=== PATIENT | female | born 1970 | race Asian ===

== ENCOUNTER 2020-08-10 14:44 | Emergency (ER) | payer BC ==
[~2020-08-10] VITALS: Ht 154.9 cm; Wt 56.0 kg
[2020-08-10 17:07] LABS: BASOPHILS % 0.2 % (0.0-2.0); EOSINOPHILS % 0.3 % (0.0-5.0); HEMATOCRIT. 34.2 % (36.0-48.0); HEMOGLOBIN. 11.2 g/dL (12.0-16.0); LYMPHOCYTES % 15.1 % (20.0-50.0); MEAN CORPUSCULAR HEMOGLOBIN 27.6 pg (28.0-32.0); MEAN CORPUSCULAR VOLUME 84.2 fL (81.0-99.0); MEAN PLATELET VOLUME 8.5 fl (7.4-10.4); MONOCYTES % 4.9 % (2.0-8.0); NEUTROPHILS % 79.5 % (40.0-76.0); PLATELET 352 x1000/uL (130-400); RED BLOOD CELL COUNT 4.07 mill/uL (4.2-5.4)
[2020-08-10 17:11] LABS: CHLORIDE 107 mEq/L (98-107)
[2020-08-10 17:14] LABS: PROTHROMBIN TIME 10.8 sec (9.6-11.0)
[2020-08-10 17:24] LABS: HCG SCREEN NEGATIVE
[2020-08-10] MEDS ORDERED: PANTOPRAZOLE SODIUM 40 MG/VIAL IV ONE (17:45)
[2020-08-10] MEDS ORDERED: SODIUM CHLORIDE 0.9% 1,000 ML IV ONE (19:30)
[2020-08-10 19:38] LABS: HEMATOCRIT 33.6 % (36.0-48.0); HEMOGLOBIN 11.1 g/dL (12.0-16.0)
== END 2020-08-10 17:40 | disposition left against medical advice (07) ==
LOC: ER 14:48
DX: K92.2 Gastrointestinal hemorrhage, unspecified (principal); D64.9 Anemia, unspecified; D72.829 Elevated white blood cell count, unspecified; R73.9 Hyperglycemia, unspecified; R79.89 Other specified abnormal findings of blood chemistry
CPT/HCPCS: 36415; 80053; 82962; 83880; 84484; 84703; 85014; 85018; 85025; 85610; 86850; 86900; 86901; 86920; 93005; 96374; 99283; C9113; J7030

== ENCOUNTER 2020-08-11 07:20 | Day surgery (SDC) | payer BC ==
[~2020-08-11] VITALS: Ht 154.9 cm; Wt 55.0 kg
[2020-08-11 07:38] VITALS: BP 118/79
[2020-08-11] MEDS ORDERED: LACTATED RINGERS 1,000 ML IV SCH (08:00)
[2020-08-11 09:08] LABS: BASOPHILS % 0.2 % (0.0-2.0); EOSINOPHILS % 0.5 % (0.0-5.0); HEMATOCRIT. 32.4 % (36.0-48.0); HEMOGLOBIN. 10.8 g/dL (12.0-16.0); LYMPHOCYTES % 29.7 % (20.0-50.0); MEAN CORPUSCULAR HEMOGLOBIN 28.1 pg (28.0-32.0); MEAN CORPUSCULAR VOLUME 84.4 fL (81.0-99.0); MEAN PLATELET VOLUME 8.4 fl (7.4-10.4); MONOCYTES % 5.8 % (2.0-8.0); NEUTROPHILS % 63.8 % (40.0-76.0); PLATELET 332 x1000/uL (130-400); RED BLOOD CELL COUNT 3.84 mill/uL (4.2-5.4); RED CELL DISTRIBUTION WIDTH 13.9 % (11.6-14.6)
[2020-08-11 09:15] LABS: CHLORIDE 108 mEq/L (98-107)
[2020-08-11] MEDS ORDERED: POTASSIUM CHLORIDE 20MEQ TABLET SR PO SCH (09:30)
[2020-08-11 10:14] LABS: PROTHROMBIN TIME 10.2 sec (9.6-11.0)
[2020-08-11 10:24] LABS: TOTAL IRON BINDING CAPACITY 318 ug/dL (250-450)
[2020-08-11 10:54] LABS: VITAMIN B12 SERUM 146 pg/mL (211-911)
[2020-08-11 11:12] LABS: FERRITIN 37 ng/mL (10-291)
[2020-08-11 16:38] LABS: FOLIC ACID (FOLATE) SERUM 19.3 ng/mL (>5.38)
[2020-08-12] MEDS ORDERED: PANTOPRAZOLE SODIUM 40 MG/VIAL IV SCH (09:00)
== END 2020-08-11 15:30 | disposition home or self-care (01) ==
LOC: ER 07:20 → OR 12:50 → ER 14:47 → OR 15:30
PROVIDERS: ATTEND Internal Medicine Gastroenterology
DX: K92.2 Gastrointestinal hemorrhage, unspecified (principal); R55 Syncope and collapse; Z20.828 Contact with and (suspected) exposure to other viral communicable diseases
CPT/HCPCS: 36415; 80053; 82607; 82728; 82746; 83540; 83550; 85025; 87426; 96360; 99283